=== PATIENT | female | born 1985 | race Caucasian/White ===

== ENCOUNTER 2018-03-11 10:55 | Emergency (ER) | payer OTHER ==
[~2018-03-11] VITALS: Ht 160 cm; Wt 104.3 kg
[~2018-03-11 10:55] MED LIST: NO HOME MEDICATION; NORCO 5-325 TA1 EACH PO
[2018-03-11 11:14] LABS: ABSOLUTE LYMPHOCYTES 1.6 thou/uL (0.8-5.3); ABSOLUTE MONOCYTES 0.4 thou/uL (0.0-1.2); ABSOLUTE NEUTROPHILS 3.8 thou/uL (1.6-8.1); BASOPHILS 0.8 %; EOSINOPHILS 0.6 %; HEMATOCRIT 39.2 % (37.0-47.0); HEMOGLOBIN 13.2 gm/dL (12.0-15.0); LYMPHOCYTES 27.2 %; MCH 30.3 pg (26.0-34.0); MCHC 33.7 g/dL (28.0-37.0); MCV 90.1 fL (80.0-100.0); MONOCYTES 7.5 %; MPV 8.2 fl. (7.2-11.1); NUCLEATED RBCS 0 /100WBC; PLATELET COUNT* 296 thou/uL (150-400); POLYS 63.9 %; RBC 4.35 mil/uL (4.20-5.00); RDW-CV 12.7 % (10.5-14.5); WBC 5.9 thou/uL (4.0-11.0)
[2018-03-11 11:37] LABS: ANION GAP 11 mmol/L (7-16); BUN 10 mg/dL (7-18); CHLORIDE 103 mmol/L (98-107); CO2 25 mmol/L (21-32); CREATININE 0.7 mg/dL (0.6-1.3); GLUCOSE 85 mg/dL (70-99); POTASSIUM 3.7 mmol/L (3.5-5.1); SODIUM 139 mmol/L (136-145)
[2018-03-11 11:47] LABS: ALBUMIN 3.7 g/dL (3.4-5.0); ALKALINE PHOSPHATASE 79 U/L (46-116); LIPASE 127 U/L (73-393); MAGNESIUM 1.9 mg/dL (1.8-2.4); SGOT 16 U/L (15-37); SGPT 23 U/L (30-65); TOTAL BILIRUBIN 0.5 mg/dL (<0.1-1.0); TOTAL PROTEIN 7.7 g/dL (6.4-8.2); TROPONIN-I LEVEL <0.06 ng/mL (<0.06)
[2018-03-11] MEDS ORDERED: HYDROCODONE-AP1 EAC6 PO (13:51)
[2018-03-11 14:21] VITALS: BP 103/74
--- NOTE | 2018-03-12 14:51 | EKG ---
[place] [address] ELECTROCARDIOGRAM REPORT Name: AAMIR PERES Room: [facility]#: [id number] Admission: 03/11/18 Attend Phys: Discharge: 03/11/18 Date of : 81 Report #: [id number] THIS REPORT FOR: //name// [facility] ED Test Date: 2018-03-11 Test Time: 11:00:03 Pat Name: AAMIR PERES Department: Room: Gender: F [employer] Referee: Leela RUIZ : 1985 Requested By: Jimbo Kimball Order Number: [id number] MD: Christian Vela Measurements Intervals [place] Rate: 70 P: 39 WI: 149 QRS: 16 QRSD: 82 T: 8 QT: 375 QTc: 405 Interpretive Statements Sinus rhythm No previous ECG available for comparison Electronically Signed On 03-12-2018 14:51:19 [employer] by Christian Vela [email or web address] <ELECTRONICALLY SIGNED> By: Christian Vela MD, [facility] 03/12/18 1451 1100 [facility] Christian Vela MD, FACC /EPI
--- NOTE | 2018-03-12 14:52 | EKG ---
[place] [address] ELECTROCARDIOGRAM REPORT Name: AAMIR PERES Room: [facility]#: [id number] Admission: 03/11/18 Attend Phys: Discharge: 03/11/18 Date of : 81 Report #: [id number] THIS REPORT FOR: //name// [facility] ED Test Date: 2018-03-11 Test Time: 13:16:47 Pat Name: AAMIR PERES Department: Room: Gender: F [employer] Supervisor: Leela RUIZ : 1985 Requested By: Jimbo Kimball Order Number: [id number] MD: Christian Vela Measurements Intervals [place] Rate: 58 P: 33 [place]: 151 QRS: 13 QRSD: 81 T: 3 QT: 422 QTc: 415 Interpretive Statements Sinus rhythm No previous ECG available for comparison Electronically Signed On 03-12-2018 14:52:10 GENERAL STUDIES PROGRAM CHAIR by Christian Vela [email or web address] <ELECTRONICALLY SIGNED> By: Christian Vela MD, [facility] 03/12/18 1452 1316 1316 Christian Vela MD, FACC /EPI
== END 2018-03-11 14:23 | disposition home or self-care (01) ==
LOC: M.ERS 10:55
PROVIDERS: Emergency Medicine Emergency Medical Services
DX: R07.89 Other chest pain (principal); R11.2 Nausea with vomiting, unspecified

== ENCOUNTER 2021-02-14 16:17 | Emergency (ER) | payer OTHER ==
[~2021-02-14] VITALS: Ht 160 cm; Wt 92.1 kg
[~2021-02-14 16:17] MED LIST changes: +HYDROCODONE-AP1 EAC6 PO
[2021-02-14 16:20] VITALS: BP 135/77
[2021-02-14] MEDS ORDERED: MEDROLDOSEPACK PO (17:09)
[2021-02-14] MEDS ORDERED: PROAIR HFA8.5 GM INH (17:09)
[2021-02-14] MEDS ORDERED: TESSALON PERLE100 MG PO (17:09)
== END 2021-02-14 17:16 | disposition home or self-care (01) ==
LOC: M.ERS 16:17
DX: J20.9 Acute bronchitis, unspecified (principal); Z20.822 Contact with and (suspected) exposure to COVID-19; G35 Multiple sclerosis